=== PATIENT | female | born 1985 | race Caucasian/White ===

== ENCOUNTER 2016-10-21 18:39 | Emergency (ER) | payer MEDICAID, OTHER ==
[~2016-10-21] VITALS: Ht 160 cm; Wt 83.4 kg
[~2016-10-21 18:39] MED LIST: ADDE20 PO; ADDE30XR PO; CETI10 PO; FERR324T4 PO; FLON0.053; [UNRECOGNIZED DRUG - OTHER]
[2016-10-21 18:41] VITALS: BP 131/96; PULSE 97; RESP 15; TEMP 99; O2SAT 100
[2016-10-21] MEDS ORDERED: ACYC800T PO (19:06)
[2016-10-21] MEDS ORDERED: SODIUM CHLOR 0.9% 1000 ML INJ 1,000 ML IV ONE (19:30)
[2016-10-21 19:46] LABS: BLOOD, URINE NEG (NEG); GLUCOSE,URINE NEG (NEG); KETONE, URINE NEG (NEG); NITRITE,URINE NEG (NEG); PH, URINE 5.5 (5.0-8.5)
[2016-10-21 19:47] LABS: BASOPHIL # 0.1 TH/MM3 (0-0.2); BASOPHIL % 1.3 % (0.0-2.0); EOSINOPHIL # 0.1 TH/MM3 (0-0.4); EOSINOPHIL % 1.3 % (0.0-4.0); HEMATOCRIT 34.1 % (35.0-46.0); HEMO FLAGS DIFF FINAL; LYMPH % 24.3 % (9.0-44.0); LYMPHOCYTE # 1.8 TH/MM3 (1.0-4.8); MEAN CELL VOLUME 91.3 FL (80.0-100.0); MEAN CORPUSCULAR HEMOGLOBIN 30.1 PG (27.0-34.0); MEAN CORPUSCULAR HGB CONC 32.9 % (32.0-36.0); MONO % 5.7 % (0.0-8.0); NEUT % 67.4 % (16.0-70.0); PLATELET COUNT 268 TH/MM3 (150-450); RED BLOOD COUNT 3.73 MIL/MM3 (4.00-5.30); RED CELL DISTRIBUTION WIDTH 11.9 % (11.6-17.2); WHITE BLOOD COUNT 7.4 TH/MM3 (4.0-11.0)
[2016-10-21 19:56] LABS: CHLORIDE 106 MEQ/L (98-107); POTASSIUM 3.7 MEQ/L (3.5-5.1); SODIUM (NA) 142 MEQ/L (136-145)
[2016-10-21 19:59] LABS: RBC, URINE 0-2 /hpf (0-3); SQUAMOUS EPITHELIAL CELL URINE 0-5 /hpf (0-5); URINE COLOR YELLOW (YELLW/STRAW); WBC, URINE 0-2 /hpf (0-5)
[2016-10-21 20:00] VITALS: BP 112/66; PULSE 92; RESP 17; O2SAT 99
[2016-10-21 20:00] LABS: ANION GAP 7 MEQ/L (5-15); BICARBONATE 29.5 MEQ/L (21.0-32.0); BLOOD UREA NITROGEN 12 MG/DL (7-18); COMMENT (UR) CULT NOT INDICATED; CULTURE IF INDICATED CULT NOT INDICATED
[2016-10-21] MEDS ORDERED: KETOROLAC TROMETHAMINE 30 MG/ML (IVP) VIAL IV PUSH ONE (20:00)
[2016-10-21 20:03] LABS: ALT (GPT) 31 U/L (10-53); AST (GOT) 18 U/L (15-37); GLOMERULAR FILTRATION RATE 79 ML/MIN (>89)
[2016-10-21 20:04] LABS: TOTAL BILIRUBIN ADULT 0.2 MG/DL (0.2-1.0)
[2016-10-21 20:06] LABS: ALKALINE PHOSPHATASE 87 U/L (45-117)
[2016-10-21 20:08] LABS: BETA HCG QUANT 6 MIU/ML (0-5)
--- NOTE | 2016-10-21 20:32 | PD ---
HPI Chief Complaint: Geometrician Problem/Complaint Time Seen by Provider: 19:18 Travel History International Travel<30 days: No Contact w/Intl Traveler<30days: No Traveled to known affect area: No History of Present Illness HPI Patient is a 31-year-old female comes in complaining of right lower quadrant abdominal pain. She says it started 3 days ago. She says she is concerned because her menstrual period was late and she had 10 days of spotting rather than regular bleeding. She reports having a tubal ligation. She denies nausea or vomiting. She denies vaginal discharge. She denies fever or chills. She tried taking an ibuprofen 3 days ago, but says it didn't help. 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 Adderall (Amphetamine-Dextroamphetamine) 20 Mg Tab 20 Mg PO DAILY Avoid late evening doses. Space doses at least 4 to 6 hours if more than once/day dosing. Reported Acyclovir 800 Mg Tab 800 Mg PO BID Review of Systems Except as stated in HPI: all other systems reviewed are Neg General / Constitutional: No: Fever, Chills HENT: No: Headaches, Lightheadedness Cardiovascular: No: Chest Pain or Discomfort Respiratory: No: Shortness of Breath Gastrointestinal: Positive: Abdominal Pain, No: Nausea, Vomiting Genitourinary: Positive: Vaginal Bleeding, No: Dysuria Musculoskeletal: No: Myalgias Skin: No Rash, No Itching Physical Exam Narrative GENERAL: Awake and alert, in no acute distress. SKIN: Focused skin assessment warm/dry. HEAD: Atraumatic. Normocephalic. EYES: Pupils equal and round. No scleral icterus. ENT: Mucous membranes pink and moist. NECK: Trachea midline. No JVD. CARDIOVASCULAR: Regular rate and rhythm. No murmur appreciated. RESPIRATORY: No accessory muscle use. Clear to auscultation. Breath sounds equal bilaterally. GASTROINTESTINAL: Abdomen soft, non-tender, nondistended. : Performed in the presence of a female nurse. Scant white discharge. No cervical lesions. No CMT. Tenderness to palpation of right adnexa. MUSCULOSKELETAL: No obvious deformities. No clubbing. No cyanosis. No edema. NEUROLOGICAL: Awake and alert. No obvious cranial nerve deficits. Motor grossly within normal limits. Normal speech. PSYCHIATRIC: Appropriate mood and affect; insight and judgment normal. Data Data Last Documented VS Vital Signs Date Time Temp Pulse Resp B/P Pulse Ox O2 Delivery O2 Flow Rate FiO2 10/21/16 21:15 90 16 119/60 98 Room Air 10/21/16 18:41 99.0 Orders Complete Blood Count With Diff (10/21/16 19:18) Comprehensive Metabolic Panel (10/21/16 19:18) Beta Hcg (Quant/Titer) (10/21/16 19:18) Ed Urine Pregnancytest Poc (10/21/16 19:18) Urinalysis - C+S If Indicated (10/21/16 19:18) Iv Access Insert/Monitor (10/21/16 19:18) Sodium Chlor 0.9% 1000 Ml Inj (Ns 1000 M (10/21/16 19:30) Wet Prep Profile (10/21/16 19:51) Gc And Chlamydia Pcr (10/21/16 19:51) Ketorolac Inj (Toradol Inj) (10/21/16 20:00) Us Pelvis Comp Geometrician/Non-Preg (10/21/16 ) Labs Laboratory Tests Test 10/21/16 10/21/16 19:40 20:00 White Blood Count 7.4 TH/MM3 Red Blood Count 3.73 MIL/MM3 Hemoglobin 11.2 GM/DL Hematocrit 34.1 % Mean Corpuscular Volume 91.3 FL Mean Corpuscular Hemoglobin 30.1 PG Mean Corpuscular Hemoglobin 32.9 % Concent Red Cell Distribution Width 11.9 % Platelet Count 268 TH/MM3 Mean Platelet Volume 7.6 FL Neutrophils (%) (Auto) 67.4 % Lymphocytes (%) (Auto) 24.3 % Monocytes (%) (Auto) 5.7 % Eosinophils (%) (Auto) 1.3 % Basophils (%) (Auto) 1.3 % Neutrophils # (Auto) 5.0 TH/MM3 Lymphocytes # (Auto) 1.8 TH/MM3 Monocytes # (Auto) 0.4 TH/MM3 Eosinophils # (Auto) 0.1 TH/MM3 Basophils # (Auto) 0.1 TH/MM3 CBC Comment DIFF FINAL Differential Comment Urine Color YELLOW Urine Turbidity CLEAR Urine pH 5.5 Urine Specific [place] 1.023 Urine Protein NEG mg/dL Urine Glucose (UA) NEG mg/dL Urine Ketones NEG mg/dL Urine Occult Blood NEG Urine Nitrite NEG Urine Bilirubin NEG Urine Leukocyte Esterase NEG Urine RBC 0-2 /hpf Urine WBC 0-2 /hpf Urine Squamous Epithelial 0-5 /hpf Cells Urine Bacteria NONE /hpf Microscopic Urinalysis Comment CULT NOT INDICATED Sodium Level 142 MEQ/L Potassium Level 3.7 MEQ/L Chloride Level 106 MEQ/L Carbon Dioxide Level 29.5 MEQ/L Anion Gap 7 MEQ/L Blood Urea Nitrogen 12 MG/DL Creatinine 0.84 MG/DL Estimat Glomerular Filtration 79 ML/MIN Rate Random Glucose 112 MG/DL Calcium Level 8.7 MG/DL Total Bilirubin 0.2 MG/DL Aspartate Amino Transf 18 U/L (AST/SGOT) Alanine Aminotransferase 31 U/L (ALT/SGPT) Alkaline Phosphatase 87 U/L Total Protein 7.2 GM/DL Albumin 3.8 GM/DL Human Chorionic Gonadotropin, 6 MIU/ML Quant Clue Cells (Wet Prep) NONE SEEN Vaginal Trichomonas (Wet Prep) NONE SEEN Vaginal Yeast (Wet Prep) NONE SEEN MDM Medical Decision Making Medical Screen Exam Complete: Yes Emergency Medical Condition: Yes Medical Record Reviewed: Yes Differential Diagnosis UTI versus ovarian cyst versus mittelschmerz syndrome versus BV Narrative Course Patient is 31-year-old female comes in complaining of right-sided pelvic pain. Exam shows really no tenderness on palpation, there is tenderness on exam. IV established, labs sent. Labs show no acute abnormalities. Beta hCG is 6, just is barely above the negative range. I spoke with OB hospitalist, who believes that this is not early , but to be safe she should have beta hCG drawn in one week. Ultrasound performed shows no acute abnormalities. Patient advised of the results. Advised to continue naproxen or ibuprofen as needed for pain. Advised follow-up with her doctor. Advised to return to the ED as needed for any worsening symptoms. Diagnosis Primary Impression: Pelvic pain Patient Instructions: General Instructions, Pelvic Pain in Women (ED) Additional Instructions: Take Ibuprofen or Naproxen for pain. Drink plenty of fluids. 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 Have a repeat Beta HCG drawn in one week. Disposition: DISCHARGE HOME Condition: Stable Rebekah Velarde MD October 21, 2016 20:32
[2016-10-21 21:15] VITALS: BP 119/60; PULSE 90; RESP 16; O2SAT 98
--- NOTE | 2016-10-21 21:43 | RADHPO ---
EXAM DATE/TIME: 10/21/2016 21:15 [facility] COMPARISON: No previous studies available for comparison. INDICATIONS : Right pelvic pain. MEDICAL HISTORY : Seasonal asthma. Depresssion. Anxiety. SURGICAL HISTORY : Appendectomy. Tubal ligation. Left eye repair. ENCOUNTER: Initial ACUITY: 3 days PAIN SCORE: 3/10 LOCATION: Bilateral pelvis MEASUREMENTS: UTERUS: 9.1 x 5.4 x 3.4 cm ENDOMETRIAL STRIPE: 4 mm RIGHT OVARY: 3.9 x 2.0 x 2.1 cm LEFT OVARY: 4.0 x 2.3 x 2.0 cm FINDINGS: UTERUS: The myometrium has homogeneous echotexture without mass. RIGHT OVARY: Ovary contains no mass or significant cystic lesion. LEFT OVARY: Ovary contains no mass or significant cystic lesion. MISCELLANEOUS: No free fluid. CONCLUSION: Normal examination. Josesito Moore MD on October 21, 2016 at 21:41 Board Certified Radiologist. This report was verified electronically.
[2016-10-21 22:26] VITALS: BP 109/74
[2016-10-22 02:20] LABS: CHLAMYDIA PCR NOT DETECTED (NOT DETECT); NEISSERIA PCR NOT DETECTED (NOT DETECT)
== END 2016-10-21 22:35 | disposition home or self-care (01) ==
LOC: PHED 18:39
DX: R10.2 Pelvic and perineal pain (principal); N93.9 Abnormal uterine and vaginal bleeding, unspecified; J45.909 Unspecified asthma, uncomplicated; F41.9 Anxiety disorder, unspecified; F32.9 Major depressive disorder, single episode, unspecified
CPT/HCPCS: 76856; 80053; 81001; 84702; 84703; 85025; 87210; 87491; 87591; 96361; 96374; 99285; J1885; J7030